=== PATIENT | male | born 1960 | race Caucasian/White ===

== ENCOUNTER 2017-09-09 22:02 | Inpatient (IN) | payer BC ==
[2017-09-09 22:25] LABS: ABSOLUTE BASOPHILS # (AUTO) 0.1 10^3/uL (0.0-0.2); ABSOLUTE LYMPHOCYTES (AUTO) 1.2 10^3/uL (0.5-4.7); ABSOLUTE MONOCYTES (AUTO) 1.5 10^3/uL (0.1-1.4); ABSOLUTE NEUT (AUTO) 7.9 10^3/uL (1.7-8.2); BASOPHILS % (AUTO) 1.1 % (0-2); EOSINOPHILS % (AUTO) 0.3 % (0-6); HEMATOCRIT 39.5 % (37.9-51.0); HEMOGLOBIN 13.8 g/dL (13.5-17.0); HGB HCT DIFFERENCE 1.9; LYMPHOCYTES % (AUTO) 10.8 % (13-45); MEAN CORPUSCULAR HEMOGLOBIN 32.6 pg (27.0-33.4); MEAN CORPUSCULAR VOLUME 93 fl (80-97); RED BLOOD COUNT 4.24 10^6/uL (4.35-5.55); RED CELL DISTRIBUTION WIDTH 13.4 % (11.5-14.0); SEGMENTED NEUTROPHILS % (AUTO) 73.8 % (42-78); WHITE BLOOD COUNT 10.7 10^3/uL (4.0-10.5)
[2017-09-09] MEDS ORDERED: NORMAL SALINE 1000 ML 1,000 ML IV ONE (22:28)
[2017-09-09 22:39] LABS: ALANINE AMINOTRANSFERASE 39 U/L (21-72); ALBUMIN 3.3 g/dL (3.5-5.0); ALKALINE PHOSPHATASE 66 U/L (38-126); ANION GAP 11 (5-19); ASPARTATE AMINO TRANSFERASE 18 U/L (17-59); BILIRUBIN,DIRECT 0.4 mg/dL (0.0-0.4); BILIRUBIN,TOTAL 1.2 mg/dL (0.2-1.3); BLOOD UREA NITROGEN 43 mg/dL (7-20); CALCIUM 9.2 mg/dL (8.4-10.2); CARBON DIOXIDE 26 mmol/L (22-30); CHLORIDE 100 mmol/L (98-107); CREATINE KINASE 156 U/L (55-170); CREATININE RESULT 1.17 mg/dL (0.52-1.25); GLUCOSE 152 mg/dL (75-110); SODIUM 136.8 mmol/L (137-145); TOTAL PROTEIN 5.5 g/dL (6.3-8.2)
--- NOTE | 2017-09-09 22:50 | EKG REPORT ---
SEVERITY:- OTHERWISE NORMAL ECG - SINUS TACHYCARDIA : Confirmed by: Anitha Macdonald 09-Sep-2017 22:49:58
[2017-09-09 22:51] LABS: CREATINE KINASE MB 1.57 ng/mL (<4.55)
[2017-09-09 22:55] LABS: TROPONIN I < 0.012 ng/mL
--- NOTE | 2017-09-09 23:00 | RADIOLOGY REPORT (SQ) ---
EXAM DESCRIPTION: CT HEAD WITHOUT CLINICAL HISTORY: 57 years Male, syncope COMPARISON: None. TECHNIQUE: No contrast, This exam was performed according to our departmental dose-optimization program, which includes automated exposure control, adjustment of the mA and/or kV according to patient size and/or use of iterative reconstruction technique. FINDINGS: Mild white matter microangiopathy. No evidence of mass, mass effect, or midline shift. No hemorrhage or infarct. Atherosclerosis. Extra-axial structures appear unremarkable. IMPRESSION: No acute findings. Mild white matter microangiopathy.
[2017-09-09 23:01] LABS: APPEARANCE,URINE CLEAR; BILIRUBIN,URINE NEGATIVE (NEGATIVE); GLUCOSE, URINE 50 mg/dL (NEGATIVE); KETONES,URINE TRACE mg/dL (NEGATIVE); LEUKOCYTE ESTERASE,URINE NEGATIVE (NEGATIVE); NITRITE,URINE NEGATIVE (NEGATIVE); PROTEIN,URINE NEGATIVE (NEGATIVE); UROBILINOGEN,URINE NEGATIVE mg/dL (<2.0)
--- NOTE | 2017-09-09 23:01 | ER Document Report ---
ED General - General Chief Complaint: Syncope Stated Complaint: SYNCOPE EPISODE Time Seen by Provider: 09/09/17 22:13 TRAVEL OUTSIDE OF THE [place] IN LAST 30 DAYS: No - HPI Patient complains to provider of: Syncope Notes: Patient coming in for evaluation of syncope. Patient states he was at [employer] form eating dinner with his family when he became very hot started to break out in sweat when outside states he remembers walking outside He remembers that his was getting him up off the ground. . Patient denies any head pain chest pain neck pain abdominal pain nausea vomiting fever chills prior to after during the episode. Patient states he is a symptomatically at this time. Patient states history of [place] in the past. Denies history of syncope recent travel patient is alert and oriented no distress upon my evaluation. - Related Data Allergies/Adverse Reactions: codeine [Codeine] Allergy (Mild, Verified 01/30/15 12:21) Anaphylaxis Past Medical History - Social History Smoking Status: Unknown if Ever Smoked Family History: Arthritis, Malignancy, CAD, CVA, Hyperlipidemia, Hypertension Patient has suicidal ideation: No Patient has homicidal ideation: No - Past Medical History Cardiac Medical History: Reports: Hx Heart Attack - STENT, Hx Hypertension Renal/ Medical History: Denies: Hx Peritoneal Dialysis Musculoskeltal Medical History: Reports Hx Arthritis, Reports Hx Gout, Reports Hx Musculoskeletal Trauma - right shoulder Traumatic Medical History: Reports: Hx Fractures - right shoulder Past Surgical History: Reports: Hx Orthopedic Surgery - Immunizations Hx Diphtheria, Pertussis, Tetanus Vaccination: Yes Review of Systems - Review of Systems Constitutional: No symptoms reported EENT: No symptoms reported Cardiovascular: Syncope Respiratory: No symptoms reported Gastrointestinal: No symptoms reported Genitourinary: No symptoms reported Male Genitourinary: No symptoms reported Musculoskeletal: No symptoms reported Skin: No symptoms reported Hematologic/Lymphatic: No symptoms reported Neurological/Psychological: No symptoms reported -: Yes All other systems reviewed and negative Physical Exam - Vital signs Vitals: Temp Resp BP Pulse Ox 98.8 F 20 115/77 95 09/09/17 22:17 12 22:17 09/09/17 22:17 09/09/17 22:17 Interpretation: Normal - General General appearance: Appears well, Alert - HEENT Head: Normocephalic, Atraumatic Eyes: Normal Pupils: PERRL - Respiratory Respiratory status: No respiratory distress Chest status: Nontender Breath sounds: Normal Chest palpation: Normal - Cardiovascular Rhythm: Regular Heart sounds: Normal auscultation Murmur: No - Abdominal Inspection: Normal Distension: No distension Bowel sounds: Normal Tenderness: Nontender Organomegaly: No organomegaly - Back Back: Normal, Nontender - Extremities General upper extremity: Normal inspection, Nontender, Normal color, Normal ROM , Normal temperature General lower extremity: Normal inspection, Nontender, Normal color, Normal ROM , Normal temperature, Normal weight bearing. No: Ni's sign - Neurological Neuro grossly intact: Yes Cognition: Normal Orientation: AAOx4 Joi Coma Scale Eye Opening: Spontaneous [place] Coma Scale Verbal: Oriented [place] Coma Scale Motor: Obeys Commands [place] Coma Scale Total: 15 Speech: Normal Motor strength normal: LUE, RUE, LLE, RLE Sensory: Normal - Psychological Associated symptoms: Normal affect, Normal mood - Skin Skin Temperature: Warm Skin Moisture: Dry Skin Color: Normal Course - Re-evaluation Re-evalutation: 09/10/17 01:27 Orthostatics are positive on the patient. Otherwise workup at this time is negative will repeat a troponin. Patient states still feeling better. Patient will be discharged on follow-up with primary care physician if second troponin is normal. 09/10/17 03:31 Second troponin returned initially was about the discharge patient second set of orthostatics were performed patients to orthostatic on the second set performed by nursing staff patient stating these have a bowel movement which returned bright red blood. Patient was placed back in the stretcher. Reexamined the patient patient still has no complaints no chest pain no abdominal pain. Abdomen still soft nontender. Patient is on gout medication more likely this is etiology of his GI bleed and possible etiology of syncope. Discussed with hospitalist and GI conference manager Dr. Connell agreed both the admit and see the patient. I have repeated a CBC coags we also have started patient on Protonix maintenance IV fluids made him n.p.o. and type and screen the patient. - Vital Signs Vital signs: Temp Pulse Resp BP Pulse Ox 98.8 F 87 22 H 129/76 H 96 09/09/17 22:17 09/10/17 00:50 09/10/17 00:01 09/10/17 00:50 09/10/17 00:01 - Laboratory Result Diagrams: 09/09/17 22:17 09/09/17 22:17 Laboratory results interpreted by me: 09/09/17 09/09/17 09/09/17 22:17 22:17 22:17 WBC 10.7 H RBC 4.24 L Lymphocytes % 10.8 L Monocytes % 14.0 H Absolute Monocytes 1.5 H D-Dimer 0.90 H Sodium 136.8 L BUN 43 H Glucose 152 H Total Protein 5.5 L Albumin 3.3 L Urine Glucose (UA) Urine Ketones Urine Blood 09/09/17 22:34 WBC RBC Lymphocytes % Monocytes % Absolute Monocytes D-Dimer Sodium BUN Glucose Total Protein Albumin Urine Glucose (UA) 50 H Urine Ketones TRACE H Urine Blood SMALL H Discharge - Discharge Clinical Impression: Syncope Qualifiers: Syncope type: unspecified Qualified Code(s): R55 - Syncope and collapse GI bleed Qualifiers: GI bleed type/associated pathology: unspecified gastrointestinal hemorrhage type Qualified Code(s): K92.2 - Gastrointestinal hemorrhage, unspecified Condition: Good Disposition: ADMITTED INPATIENT Admitting Provider: Hospitalist [facility] Unit Admitted: ICU
--- NOTE | 2017-09-10 00:14 | RADIOLOGY REPORT (SQ) ---
EXAM DESCRIPTION: CHEST PA/LAT CLINICAL HISTORY: 57 years, Male, syncope COMPARISON: None. NUMBER OF VIEWS: 1 TECHNIQUE: Frontal. LIMITATIONS: None. FINDINGS: Moderate lung volumes. Clear parenchyma. Normal cardiac silhouette. [id number] right coracoclavicular osteoarthritis/deformity may indicate prior injury. IMPRESSION: No acute findings. 2011 [employer]- All Rights Reserved
--- NOTE | 2017-09-10 00:23 | RADIOLOGY REPORT (SQ) ---
EXAM DESCRIPTION: CTA CHEST CLINICAL HISTORY: 57 years Male, syncope COMPARISON: None. TECHNIQUE: 100 mL [id number], This exam was performed according to our departmental dose-optimization program, which includes automated exposure control, adjustment of the mA and/or kV according to patient size and/or use of iterative reconstruction technique. FINDINGS: No evidence of pulmonary embolus. No right ventricular strain. Small coronary arterial calcification. Faint scattered nonspecific groundglass density may indicate small airways disease and small right basilar atelectasis or scar. Mild hepatic steatosis. Mild/moderate osteoarthritis. Moderate disc desiccation. Inferior neck, axillae, and upper abdomen appear otherwise unremarkable. IMPRESSION: No acute cardiopulmonary findings. No evidence of pulmonary emboli.
[2017-09-10] MEDS ORDERED: NORMAL SALINE 500 ML IV ONE ×2 (01:12→03:23)
[2017-09-10] MEDS ORDERED: PANTOPRAZOLE SODIUM 40 MG VIAL IV ONE (03:11)
[2017-09-10] MEDS ORDERED: NORMAL SALINE 1000 ML 1,000 ML IV ONE (03:23)
[2017-09-10] MEDS ORDERED: IPRATROPIUM/ALBUTEROL 0.5-2.5 MG/3 ML AMPUL NEB PRN (03:29)
[2017-09-10] MEDS ORDERED: NORMAL SALINE 1000 ML 1,000 ML IV SCH (03:30)
[2017-09-10 03:47] LABS: ABSOLUTE BASOPHILS # (AUTO) 0.1 10^3/uL (0.0-0.2); ABSOLUTE LYMPHOCYTES (AUTO) 2.2 10^3/uL (0.5-4.7); ABSOLUTE MONOCYTES (AUTO) 2.1 10^3/uL (0.1-1.4); ABSOLUTE NEUT (AUTO) 7.5 10^3/uL (1.7-8.2); BASOPHILS % (AUTO) 0.8 % (0-2); EOSINOPHILS % (AUTO) 0.2 % (0-6); HEMATOCRIT 34.2 % (37.9-51.0); HEMOGLOBIN 11.8 g/dL (13.5-17.0); HGB HCT DIFFERENCE 1.2; LYMPHOCYTES % (AUTO) 18.4 % (13-45); MEAN CORPUSCULAR HEMOGLOBIN 32.2 pg (27.0-33.4); MEAN CORPUSCULAR HGB CONC 34.4 g/dL (32.0-36.0); MEAN CORPUSCULAR VOLUME 94 fl (80-97); MONOCYTES % (AUTO) 17.4 % (3-13); RED BLOOD COUNT 3.65 10^6/uL (4.35-5.55); RED CELL DISTRIBUTION WIDTH 13.5 % (11.5-14.0); SEGMENTED NEUTROPHILS % (AUTO) 63.2 % (42-78); WHITE BLOOD COUNT 11.9 10^3/uL (4.0-10.5)
[2017-09-10 03:50] LABS: PARTIAL THROMBOPLASTIN TIME 21.7 SEC (23.5-35.8); PROTHROMBIN TIME 14.9 SEC (11.4-15.4)
--- NOTE | 2017-09-10 04:33 | PDOC H&P ---
History of Present Illness Admission Date/PCP: 09/10/17 03:29 Patient complains of: Syncope History of Present Illness: MARLA DALE is a 57 year old male with a past medical history of coronary artery disease with stent placement 2013, osteoarthritis and gout on indomethacin. Patient presents with diaphoresis following a meal followed by a brief syncopal episode in which she was helped to the ground by his . He did not have limb shaking or sustain injury but had urinary incontinence. In the emergency room he was found to have orthostasis, an elevated BUN followed by a large bright red blood bowel movement. He started on IV Protonix and referred to the hospitalist for admission. He denies headache, palpitations, chest pain or previous episode. He denies new medications and otherwise feels well. Past Medical History Cardiac Medical History: Reports: Myocardial Infarction - STENT, Hypertension Musculoskeltal Medical History: Reports: Arthritis, Gout Psychiatric Medical History: Denies: Alcohol Dependency, Bipolar Disorder, Substance Abuse, Tobacco Dependency Past Surgical History Past Surgical History: Reports: Orthopedic Surgery Social History Information Source: Patient Lives with: Spouse/Significant other Smoking Status: Unknown if Ever Smoked Frequency of Alcohol Use: Rare Drugs: None - Advance Directive Resuscitation Status: Full Code Family History Family History: Arthritis, Malignancy, CAD, CVA, Hyperlipidemia, Hypertension Parental Family History Reviewed: Yes Children Family History Reviewed: Yes Sibling(s) Family History Reviewed.: Yes Medication/Allergy Home Medications: Hydrochlorothiazide [Hydrodiuril 25 mg Tablet] 25 mg PO QAM #30 tablet 08/23/13 Indomethacin [Indocin 50 mg Capsule] 50 mg PO TID #30 capsule 08/23/13 Lisinopril 20 mg PO DAILY #30 tablet 08/23/13 Allergies/Adverse Reactions: codeine [Codeine] Allergy (Mild, Verified 01/30/15 12:21) Anaphylaxis Review of Systems Constitutional: ABSENT: chills, fever(s), headache(s), weight gain, weight loss Eyes: ABSENT: visual disturbances Ears: ABSENT: hearing changes Cardiovascular: ABSENT: chest pain, dyspnea on exertion, edema, orthropnea, palpitations Respiratory: ABSENT: cough, hemoptysis Gastrointestinal: ABSENT: abdominal pain, constipation, diarrhea, hematemesis, hematochezia, nausea, vomiting Genitourinary: ABSENT: dysuria, hematuria Musculoskeletal: ABSENT: joint swelling Integumentary: ABSENT: rash, wounds Neurological: ABSENT: abnormal gait, abnormal speech, confusion, dizziness, focal weakness, syncope Psychiatric: ABSENT: anxiety, depression, homidical ideation, suicidal ideation Endocrine: ABSENT: cold intolerance, heat intolerance, polydipsia, polyuria Hematologic/Lymphatic: ABSENT: easy bleeding, easy bruising Physical Exam Vital Signs: Temp Pulse Resp BP Pulse Ox 98.8 F 87 18 114/69 96 09/09/17 22:17 09/10/17 00:50 09/10/17 03:43 09/10/17 03:43 09/10/17 03:43 General appearance: PRESENT: no acute distress, well-developed, well-nourished Head exam: PRESENT: atraumatic, normocephalic Eye exam: PRESENT: conjunctiva pink, EOMI, PERRLA. ABSENT: scleral icterus Ear exam: PRESENT: normal external ear exam Mouth exam: PRESENT: moist, tongue midline Neck exam: ABSENT: carotid bruit, JVD, lymphadenopathy, thyromegaly Respiratory exam: PRESENT: clear to auscultation carlos. ABSENT: rales, rhonchi, wheezes Cardiovascular exam: PRESENT: RRR. ABSENT: diastolic murmur, rubs, systolic murmur Pulses: PRESENT: normal dorsalis pedis pul Vascular exam: PRESENT: normal capillary refill GI/Abdominal exam: PRESENT: normal bowel sounds, soft. ABSENT: distended, guarding, mass, organolmegaly, rebound, tenderness Rectal exam: PRESENT: deferred Extremities exam: PRESENT: full ROM. ABSENT: calf tenderness, clubbing, pedal edema Neurological exam: PRESENT: alert, awake, oriented to person, oriented to place , oriented to time, oriented to situation, CN II-XII grossly intact. ABSENT: motor sensory deficit Psychiatric exam: PRESENT: appropriate affect, normal mood. ABSENT: homicidal ideation, suicidal ideation Skin exam: PRESENT: dry, intact, warm. ABSENT: cyanosis, rash Results Impressions: Chest X-Ray 09/09/17 22:28 IMPRESSION: No acute findings. 2010 [employer]- All Rights Reserved Head CT 09/09/17 22:28 IMPRESSION: No acute findings. Mild white matter microangiopathy. Chest/Abdomen CTA 09/09/17 23:01 IMPRESSION: No acute cardiopulmonary findings. No evidence of pulmonary emboli. Assessment & Plan - Diagnosis (1) Upper GI bleed Is this a current diagnosis for this admission?: Yes Plan: Likely gastric versus duodenal ulcer secondary to indomethacin. ICU admission, n.p.o., Protonix 80 mg bolus followed by 80 mg over 72 hours. Gastroenterology consult for EGD, serial CBC and as needed RBC transfusion. (2) Gout Is this a current diagnosis for this admission?: Yes Plan: Avoidance of p.o. NSAIDs (3) Coronary artery disease Is this a current diagnosis for this admission?: Yes Plan: Maintain hemoglobin around 10 with as needed transfusion. (4) Syncope Qualifiers: Syncope type: unspecified Qualified Code(s): R55 - Syncope and collapse Is this a current diagnosis for this admission?: Yes Plan: Secondary to #1. - Time Time Spent: 30 to 50 Minutes - Inpatient Certification Medical Necessity: Need Close Monitoring Due to Risk of Patient Decompensation
[2017-09-10] MEDS ORDERED: PANTOPRAZOLE SODIUM 40 MG VIAL IV PRN (04:42)
[2017-09-10] MEDS ORDERED: INFLUENZA ADLT QUAD (36MOS+) 2017-18 VAC 0.5 ML SYR IM PRN (05:44)
--- NOTE | 2017-09-10 07:38 | PDOC CONSULTATION ---
Consultation Consult Date: 09/09/17 Attending physician:: BETO BENÍTEZ Consult reason:: GI bleeding History of Present Illness Admission Date/PCP: 09/10/17 03:29 History of Present Illness: I was contacted overnight by ED physician, patient had been seen in the ED for syncope. patient was about to be discharged when upon standing up, felt weak, also reported rectal bleeding he was subsequently admitted and is in the ICU Hgb has dropped about 2 grams after hydration patient had CT scan done , that was negative for PE does take ASA and Plavix as an outpatient denies melena however does have symptoms of hypotension and weakness patient has had an [place] in the past but denies any chest pain GI work up is requested to rule out source of bleed patient to be stabalized first prior to undergoing EGD he will need to be on a PPI drip should be kept NPO also may need to transfuse , follow H/H q 6 hours Past Medical History Cardiac Medical History: Reports: Myocardial Infarction - STENT, Hypertension Musculoskeltal Medical History: Reports: Arthritis, Gout Psychiatric Medical History: Denies: Alcohol Dependency, Bipolar Disorder, Substance Abuse, Tobacco Dependency Past Surgical History Past Surgical History: Reports: Orthopedic Surgery Social History Lives with: Spouse/Significant other Smoking Status: Never Smoker Frequency of Alcohol Use: Social Hx Recreational Drug Use: Yes Drugs: None Hx Prescription Drug Abuse: No - Advance Directive Resuscitation Status: Full Code Family History Family History: Arthritis, Malignancy, CAD, CVA, Hyperlipidemia, Hypertension Parental Family History Reviewed: Yes Children Family History Reviewed: Unknown Sibling(s) Family History Reviewed.: Unknown Medication/Allergy Home Medications: Amlodipine Besylate [Amlodipine Besylate] 5 mg PO DAILY 09/10/17 Aspirin 162 mg PO DAILY 09/10/17 Atorvastatin Calcium [Lipitor 20 mg Tablet] 20 mg PO QHS 09/10/17 Clopidogrel Bisulfate [Clopidogrel] 75 mg PO DAILY 09/10/17 Docusate Sodium [Colace 100 mg Capsule] 100 mg PO DAILY 09/10/17 Metoprolol Tartrate [Metoprolol Tartrate] 12.5 mg PO BID 09/10/17 Valsartan/Hydrochlorothiazide [Valsartan-Hctz 160-25 mg Tab] 1 each PO DAILY 04/20 Allergies/Adverse Reactions: codeine [Codeine] Allergy (Mild, Verified 04/28/15 12:21) Anaphylaxis Review of Systems Constitutional: PRESENT: weakness. ABSENT: fever(s), headache(s), night sweats Ears: ABSENT: hearing changes Nose, Mouth, and Throat: ABSENT: mouth pain, sore throat Cardiovascular: ABSENT: dyspnea on exertion, edema Respiratory: ABSENT: hemoptysis Gastrointestinal: PRESENT: hematochezia. ABSENT: melena, nausea, vomiting Genitourinary: ABSENT: dysuria, hematuria Musculoskeletal: ABSENT: deformity, joint swelling Integumentary: ABSENT: pruritus Neurological: PRESENT: syncope. ABSENT: tingling, tremor(s), vertigo Endocrine: PRESENT: polyuria. ABSENT: polydipsia, polyphagia Hematologic/Lymphatic: ABSENT: easy bruising Physical Exam Vital Signs: Temp Pulse Resp BP Pulse Ox 98.1 F 94 17 120/66 100 09/10/17 06:00 09/10/17 05:21 09/10/17 07:00 09/10/17 06:55 09/10/17 07:00 Intake & Output 09/09/17 09/10/17 09/11/17 06:59 06:59 06:59 Intake Total 490 Output Total 0 Balance 490 Weight 122.3 kg General appearance: PRESENT: no acute distress, well-developed, well-nourished Head exam: PRESENT: atraumatic, normocephalic Eye exam: PRESENT: EOMI, PERRLA. ABSENT: nystagmus, periorbital swelling, scleral icterus Mouth exam: PRESENT: moist, neck supple Throat exam: ABSENT: tonsillar exudate, tonsillogmegaly Neck exam: ABSENT: meningismus, tenderness, thyromegaly Respiratory exam: PRESENT: symmetrical, unlabored. ABSENT: tachypnea, wheezes Cardiovascular exam: PRESENT: RRR, +S1, +S2 GI/Abdominal exam: PRESENT: soft. ABSENT: rebound, rigid, tenderness Extremities exam: ABSENT: joint swelling Neurological exam: PRESENT: oriented to time, oriented to situation, reflexes normal, CN II-XII grossly intact Skin exam: PRESENT: normal color. ABSENT: mottled, petechiae, urticaria, vesicles Results Impressions: Chest X-Ray 09/09/17 22:28 IMPRESSION: No acute findings. 2010 [employer]- All Rights Reserved Head CT 09/09/17 22:28 IMPRESSION: No acute findings. Mild white matter microangiopathy. Chest/Abdomen CTA 09/09/17 23:01 IMPRESSION: No acute cardiopulmonary findings. No evidence of pulmonary emboli. Assessment & Plan - Diagnosis (1) GI bleed Qualifiers: GI bleed type/associated pathology: unspecified gastrointestinal hemorrhage type Qualified Code(s): K92.2 - Gastrointestinal hemorrhage, unspecified Plan: ? possible upper GI bleed since has had symptoms of hypotension, syncope and weakness agreed with admission to ICU H/H q 6 hours 2 large bore IV's fluid resuscitation transfuse as necessary since patient has had FL in the past PPI drip for now will need EGD done Risks, benefits and alternatives are discussed with the patient in detail further recommendations to follow - Time Time Spent: 50 to 70 Minutes
[2017-09-10 11:03] LABS: ABSOLUTE LYMPHOCYTES (AUTO) 1.2 10^3/uL (0.5-4.7); ABSOLUTE MONOCYTES (AUTO) 1.1 10^3/uL (0.1-1.4); ABSOLUTE NEUT (AUTO) 5.3 10^3/uL (1.7-8.2); BASOPHILS % (AUTO) 0.6 % (0-2); EOSINOPHILS % (AUTO) 0.2 % (0-6); HEMATOCRIT 29.2 % (37.9-51.0); HEMOGLOBIN 9.9 g/dL (13.5-17.0); HGB HCT DIFFERENCE 0.5; LYMPHOCYTES % (AUTO) 15.8 % (13-45); MEAN CORPUSCULAR HEMOGLOBIN 32.1 pg (27.0-33.4); MEAN CORPUSCULAR VOLUME 95 fl (80-97); MONOCYTES % (AUTO) 14.1 % (3-13); RED BLOOD COUNT 3.09 10^6/uL (4.35-5.55); RED CELL DISTRIBUTION WIDTH 13.1 % (11.5-14.0); SEGMENTED NEUTROPHILS % (AUTO) 69.3 % (42-78); WHITE BLOOD COUNT 7.7 10^3/uL (4.0-10.5)
[2017-09-10] MEDS: NORMAL SALINE 1000 ML 1,000 ML IV PRN ×2 (13:04→17:48)
[2017-09-10] MEDS: NORMAL SALINE 100 ML with PANTOPRAZOLE SODIUM 80 MG IV PRN ×2 (13:04)
[2017-09-10] MEDS ORDERED: DIPHENHYDRAMINE HCL 50 MG/ML VIAL ONE (13:21)
[2017-09-10] MEDS ORDERED: ONDANSETRON HCL INJ/PF 4 MG/2 ML SDV ONE (13:21)
[2017-09-10] MEDS ORDERED: MIDAZOLAM 2 MG/2 ML INJ ONE (13:22)
[2017-09-10] MEDS ORDERED: NALOXONE HCL INJ/PF 0.4 MG/1 ML SDV ONE (13:22)
[2017-09-10] MEDS ORDERED: FLUMAZENIL INJ 0.5 MG/5 ML VIAL ONE (13:23)
[2017-09-10] MEDS ORDERED: EPINEPHRINE INJ 1 MG/10 ML DISP.SYRIN ONE (13:23)
[2017-09-10] MEDS ORDERED: GLUCAGON,HUMAN RECOMB 1 MG INJ ONE (13:23)
[2017-09-10] MEDS ORDERED: FENTANYL CITRATE INJ/PF 100 MCG/2 ML AMPUL ONE ×2 (13:23)
[2017-09-10] MEDS: MIDAZOLAM 2 MG/2 ML INJ ONE ×2 (13:47→13:51)
--- NOTE | 2017-09-10 14:42 | Operative Report ---
Operative Report DATE OF SURGERY: 09/10/17 Operative Report: The risks benefits and alternatives of the procedure explained to the patient in detail and informed consent is obtained.A GIF Olympus video scope was inserted into the patient's mouth and hypopharynx, the esophagus is identified intubated and insufflated, the scope was then advanced through the esophagus stomach and duodenum, retroflexion maneuver is done, the esophagus stomach and first and second portions of the duodenum examined PREOPERATIVE DIAGNOSIS: GI bleed POSTOPERATIVE DIAGNOSIS: Esophagitis. Clean base gastric ulcer. Duodenitis. Biopsies obtained to rule out for Helicobacter pylori OPERATION: EGD with biopsy SURGEON: BETO BENÍTEZ ANESTHESIA: Moderate Sedation - 4 mg of Versed, 100 mcg of fentanyl. Conscious sedation monitoring time 30 minutes. TISSUE REMOVED OR ALTERED: As noted above. COMPLICATIONS: None. ESTIMATED BLOOD LOSS: None. INTRAOPERATIVE FINDINGS: As described above. PROCEDURE: Patient tolerated the procedure well. We will continue to monitor H&H. No postprocedure complications are noted. We will have to hold aspirin and Plavix until his blood count stabilizes. Transfuse as needed. Continue IV PPI We will continue to monitor patient
[2017-09-10 15:53] LABS: ABSOLUTE LYMPHOCYTES (AUTO) 1.3 10^3/uL (0.5-4.7); ABSOLUTE MONOCYTES (AUTO) 1.1 10^3/uL (0.1-1.4); ABSOLUTE NEUT (AUTO) 6.8 10^3/uL (1.7-8.2); BASOPHILS % (AUTO) 0.5 % (0-2); EOSINOPHILS % (AUTO) 0.3 % (0-6); HEMATOCRIT 27.4 % (37.9-51.0); HEMOGLOBIN 9.5 g/dL (13.5-17.0); HGB HCT DIFFERENCE 1.1; LYMPHOCYTES % (AUTO) 14.2 % (13-45); MEAN CORPUSCULAR HEMOGLOBIN 32.8 pg (27.0-33.4); MEAN CORPUSCULAR HGB CONC 34.8 g/dL (32.0-36.0); MEAN CORPUSCULAR VOLUME 94 fl (80-97); MONOCYTES % (AUTO) 12.1 % (3-13); RED CELL DISTRIBUTION WIDTH 13.3 % (11.5-14.0); SEGMENTED NEUTROPHILS % (AUTO) 72.9 % (42-78); WHITE BLOOD COUNT 9.4 10^3/uL (4.0-10.5)
[2017-09-10 21:50] LABS: ABSOLUTE BASOPHILS # (AUTO) 0.1 10^3/uL (0.0-0.2); ABSOLUTE LYMPHOCYTES (AUTO) 1.2 10^3/uL (0.5-4.7); ABSOLUTE MONOCYTES (AUTO) 1.1 10^3/uL (0.1-1.4); ABSOLUTE NEUT (AUTO) 6.3 10^3/uL (1.7-8.2); EOSINOPHILS % (AUTO) 0.4 % (0-6); HEMATOCRIT 25.3 % (37.9-51.0); HGB HCT DIFFERENCE 1.7; LYMPHOCYTES % (AUTO) 14.1 % (13-45); MEAN CORPUSCULAR HEMOGLOBIN 32.9 pg (27.0-33.4); MEAN CORPUSCULAR HGB CONC 35.4 g/dL (32.0-36.0); MEAN CORPUSCULAR VOLUME 93 fl (80-97); MONOCYTES % (AUTO) 12.2 % (3-13); RED BLOOD COUNT 2.72 10^6/uL (4.35-5.55); RED CELL DISTRIBUTION WIDTH 13.2 % (11.5-14.0); SEGMENTED NEUTROPHILS % (AUTO) 72.3 % (42-78); WHITE BLOOD COUNT 8.7 10^3/uL (4.0-10.5)
[2017-09-11 04:57] LABS: ABSOLUTE BASOPHILS # (AUTO) 0.1 10^3/uL (0.0-0.2); ABSOLUTE LYMPHOCYTES (AUTO) 1.2 10^3/uL (0.5-4.7); ABSOLUTE MONOCYTES (AUTO) 0.9 10^3/uL (0.1-1.4); ABSOLUTE NEUT (AUTO) 5.7 10^3/uL (1.7-8.2); BASOPHILS % (AUTO) 0.7 % (0-2); EOSINOPHILS % (AUTO) 0.6 % (0-6); HEMATOCRIT 25.6 % (37.9-51.0); HEMOGLOBIN 8.7 g/dL (13.5-17.0); HGB HCT DIFFERENCE 0.5; LYMPHOCYTES % (AUTO) 14.8 % (13-45); MEAN CORPUSCULAR HEMOGLOBIN 31.9 pg (27.0-33.4); MEAN CORPUSCULAR HGB CONC 34.1 g/dL (32.0-36.0); MEAN CORPUSCULAR VOLUME 94 fl (80-97); MONOCYTES % (AUTO) 11.4 % (3-13); RED BLOOD COUNT 2.73 10^6/uL (4.35-5.55); RED CELL DISTRIBUTION WIDTH 13.3 % (11.5-14.0); SEGMENTED NEUTROPHILS % (AUTO) 72.5 % (42-78); WHITE BLOOD COUNT 7.9 10^3/uL (4.0-10.5)
[2017-09-11 05:02] LABS: ANION GAP 6 (5-19); BLOOD UREA NITROGEN 23 mg/dL (7-20); CALCIUM 7.8 mg/dL (8.4-10.2); CARBON DIOXIDE 26 mmol/L (22-30); CHLORIDE 108 mmol/L (98-107); CREATININE RESULT 0.82 mg/dL (0.52-1.25); GLUCOSE 109 mg/dL (75-110); POTASSIUM 3.7 mmol/L (3.6-5.0); SODIUM 139.9 mmol/L (137-145)
[2017-09-11] MEDS ORDERED: KETOROLAC TROMETHAMINE INJ/PF 30 MG/1 ML SDV IV ONE (05:45)
[2017-09-11] MEDS ORDERED: ACETAMINOPHEN 325 MG TABLET PO PRN (06:34)
[2017-09-11] MEDS ORDERED: ZOLPIDEM TARTRATE 5 MG TABLET PO PRN (06:34)
[2017-09-11] MEDS ORDERED: ONDANSETRON HCL INJ/PF 4 MG/2 ML SDV IV PRN (06:35)
[2017-09-11] MEDS: FERROUS SULFATE 325 MG TABLET PO SCH ×2 (09:18→17:14)
[2017-09-11] MEDS ORDERED: MORPHINE SULFATE IR 30 MG TABLET PO PRN (10:42)
--- NOTE | 2017-09-11 11:04 | PDOC PROGRESS REPORT ---
Subjective Progress Note for:: 09/11/17 Subjective:: Patient relates that had not been having any more bleeding. Was not able to sleep last night because of a gout attack. Pain improved after was given IV Toradol Reason For Visit: UPPER GI BLEED Physical Exam Vital Signs: Temp Pulse Resp BP Pulse Ox 100.1 F 98 16 128/77 H 100 09/10/17 17:54 09/10/17 17:54 09/10/17 17:54 09/10/17 17:54 09/10/17 17:54 Intake & Output 09/09/17 09/10/17 09/11/17 06:59 06:59 06:59 Intake Total 490 750 Output Total 0 500 Balance 490 250 Weight 122.3 kg General appearance: PRESENT: no acute distress, cooperative, obese Head exam: PRESENT: atraumatic, normocephalic Eye exam: PRESENT: EOMI, PERRLA Ear exam: PRESENT: normal external ear exam Mouth exam: PRESENT: moist, neck supple Neck exam: PRESENT: full ROM. ABSENT: JVD, tenderness Respiratory exam: PRESENT: clear to auscultation carlos Cardiovascular exam: PRESENT: RRR. ABSENT: diastolic murmur, systolic murmur Vascular exam: PRESENT: normal capillary refill GI/Abdominal exam: PRESENT: normal bowel sounds, soft. ABSENT: tenderness Extremities exam: PRESENT: full ROM, pedal edema Neurological exam: PRESENT: alert, oriented to person, oriented to place, oriented to time Psychiatric exam: PRESENT: appropriate affect, normal mood Skin exam: PRESENT: normal color Results Laboratory Results: 09/11/17 04:28 09/11/17 04:28 09/10/17 09/10/17 09/10/17 10:41 15:35 21:30 WBC 7.7 9.4 8.7 RBC 3.09 L 2.90 L 2.72 L Hgb 9.9 L 9.5 L 9.0 L Hct 29.2 L 27.4 L 25.3 L MCV 95 94 93 MCH 32.1 32.8 32.9 MCHC 34.0 34.8 35.4 RDW 13.1 13.3 13.2 Plt Count 190 184 169 Seg Neutrophils % 69.3 72.9 72.3 Lymphocytes % 15.8 14.2 14.1 Monocytes % 14.1 H 12.1 12.2 Eosinophils % 0.2 0.3 0.4 Basophils % 0.6 0.5 1.0 Absolute Neutrophils 5.3 6.8 6.3 Absolute Lymphocytes 1.2 1.3 1.2 Absolute Monocytes 1.1 1.1 1.1 Absolute Eosinophils 0.0 0.0 0.0 Absolute Basophils 0.0 0.0 0.1 Sodium Potassium Chloride Carbon Dioxide Anion Gap BUN Creatinine Est GFR ( Amer) Est GFR (Non-Af Amer) Glucose Calcium 09/11/17 09/11/17 04:28 04:28 WBC 7.9 RBC 2.73 L Hgb 8.7 L Hct 25.6 L MCV 94 MCH 31.9 MCHC 34.1 RDW 13.3 Plt Count 183 Seg Neutrophils % 72.5 Lymphocytes % 14.8 Monocytes % 11.4 Eosinophils % 0.6 Basophils % 0.7 Absolute Neutrophils 5.7 Absolute Lymphocytes 1.2 Absolute Monocytes 0.9 Absolute Eosinophils 0.0 Absolute Basophils 0.1 Sodium 139.9 Potassium 3.7 Chloride 108 H Carbon Dioxide 26 Anion Gap 6 BUN 23 H Creatinine 0.82 Est GFR ( Amer) > 60 Est GFR (Non-Af Amer) > 60 Glucose 109 Calcium 7.8 L Impressions: Chest X-Ray 09/09/17 22:28 IMPRESSION: No acute findings. 2010 [employer]- All Rights Reserved Head CT 09/09/17 22:28 IMPRESSION: No acute findings. Mild white matter microangiopathy. Chest/Abdomen CTA 09/09/17 23:01 IMPRESSION: No acute cardiopulmonary findings. No evidence of pulmonary emboli. Assessment & Plan - Diagnosis (1) Anemia Qualifiers: Other causes of anemia: acute posthemorrhagic Is this a current diagnosis for this admission?: Yes Plan: We will keep trending. Patient made aware that may need blood transfusion. For now patient has been initiated on iron supplementation orally (2) Upper GI bleed Is this a current diagnosis for this admission?: Yes Plan: Multifactorial. Patient is on aspirin and Plavix. Medications are on hold for now. Management assisted by Dr. Stallworth and appreciated. Patient to be advanced to full liquid as per GIs recommendation (3) Coronary artery disease Qualifiers: Coronary Disease-Associated Artery/Lesion type: unspecified vessel or lesion type [place] vs. transplanted heart: unspecified whether [place] or transplanted heart Associated angina: without angina Qualified Code(s): I25.10 - Atherosclerotic heart disease of [place] coronary artery without angina pectoris Is this a current diagnosis for this admission?: Yes Plan: Patient will require to be of Plavix and aspirin likely for the next 6 weeks (4) Gout Qualifiers: Gout site: foot Gout etiology: unspecified cause Chronicity: acute Laterality: right Qualified Code(s): M10.9 - Gout, unspecified Is this a current diagnosis for this admission?: Yes Plan: Pain management avoiding nonsteroidals in the setting of peptic ulcer disease (5) Syncope Qualifiers: Syncope type: unspecified Qualified Code(s): R55 - Syncope and collapse Is this a current diagnosis for this admission?: Yes Plan: Due to orthostasis secondary to acute GI bleeding - Time Time Spent with patient: 15-24 minutes Medications reviewed and adjusted accordingly: Yes Anticipated discharge: Home Within: within 48 hours - Inpatient Certification Based on my medical assessment, after consideration of the patient's comorbidities, presenting symptoms, or acuity I expect that the services needed warrant INPATIENT care.: Yes I certify that my determination is in accordance with my understanding of Medicare's requirements for reasonable and necessary INPATIENT services [42 CFR 412.3e].: Yes Medical Necessity: Need Close Monitoring Due to Risk of Patient Decompensation, Need for Pain Control
[2017-09-11] MEDS: NORMAL SALINE 100 ML with PANTOPRAZOLE SODIUM 80 MG IV PRN ×2 (13:18)
[2017-09-11] MEDS: OXYCODONE-ACETAMINOPHEN 5-325 MG TABLET PO PRN ×2 (14:22→18:30)
[2017-09-11] MEDS: NORMAL SALINE 1000 ML 1,000 ML IV PRN (14:23)
--- NOTE | 2017-09-11 16:26 | PDOC PROGRESS REPORT ---
Subjective Progress Note for:: 09/11/17 Subjective:: patient underwent EGD yesterday in MICU for possible GI bleeding patient does have clean based gastric ulcer Hgb has been trending down agree that he should be off anticoagulation for at least 6 weeks patient had 1 episode of bleeding continue to monitor H/H lower threshold for transfusion since has cardiac history if continues to have bleeding, may need bleeding scan could also has a possible lower GI source i.e. diverticulosis may need colonoscopy at some point, either next week of as an outpatient has been having gout, now medicated for that avoid NSAIDS if possible Reason For Visit: UPPER GI BLEED Physical Exam Vital Signs: Temp Pulse Resp BP Pulse Ox 99.1 F 85 14 113/64 98 09/11/17 11:18 09/11/17 15:31 09/11/17 15:31 09/11/17 11:18 09/11/17 15:31 Intake & Output 09/10/17 09/11/17 09/12/17 06:59 06:59 06:59 Intake Total 490 1000 Output Total 0 500 Balance 490 500 Weight 122.3 kg 129.5 kg General appearance: PRESENT: no acute distress, well-developed, well-nourished Head exam: PRESENT: atraumatic, normocephalic Eye exam: PRESENT: EOMI, PERRLA. ABSENT: nystagmus, periorbital swelling, scleral icterus Mouth exam: PRESENT: moist, neck supple Throat exam: ABSENT: tonsillar exudate, tonsillogmegaly Neck exam: ABSENT: meningismus, tenderness, thyromegaly Respiratory exam: PRESENT: symmetrical, unlabored. ABSENT: tachypnea, wheezes Cardiovascular exam: PRESENT: RRR, +S2 Pulses: PRESENT: normal dorsalis pedis pul GI/Abdominal exam: PRESENT: soft. ABSENT: rebound, rigid, tenderness Musculoskeletal exam: PRESENT: full ROM Neurological exam: PRESENT: oriented to time, oriented to situation, CN II-XII grossly intact Focused psych exam: ABSENT: restlessness Skin exam: PRESENT: normal color. ABSENT: mottled, pallor, petechiae, urticaria , vesicles Results Laboratory Results: 09/11/17 04:28 09/11/17 04:28 09/10/17 09/11/17 09/11/17 21:30 04:28 04:28 WBC 8.7 7.9 RBC 2.72 L 2.73 L Hgb 9.0 L 8.7 L Hct 25.3 L 25.6 L MCV 93 94 MCH 32.9 31.9 MCHC 35.4 34.1 RDW 13.2 13.3 Plt Count 169 183 Seg Neutrophils % 72.3 72.5 Lymphocytes % 14.1 14.8 Monocytes % 12.2 11.4 Eosinophils % 0.4 0.6 Basophils % 1.0 0.7 Absolute Neutrophils 6.3 5.7 Absolute Lymphocytes 1.2 1.2 Absolute Monocytes 1.1 0.9 Absolute Eosinophils 0.0 0.0 Absolute Basophils 0.1 0.1 Sodium 139.9 Potassium 3.7 Chloride 108 H Carbon Dioxide 26 Anion Gap 6 BUN 23 H Creatinine 0.82 Est GFR ( Amer) > 60 Est GFR (Non-Af Amer) > 60 Glucose 109 Calcium 7.8 L Impressions: Chest X-Ray 09/09/17 22:28 IMPRESSION: No acute findings. [facility] [employer]- All Rights Reserved Head CT 09/09/17 22:28 IMPRESSION: No acute findings. Mild white matter microangiopathy. Chest/Abdomen CTA 09/09/17 23:01 IMPRESSION: No acute cardiopulmonary findings. No evidence of pulmonary emboli. Assessment & Plan - Diagnosis (1) GI bleed Qualifiers: GI bleed type/associated pathology: unspecified gastrointestinal hemorrhage type Qualified Code(s): K92.2 - Gastrointestinal hemorrhage, unspecified Plan: has a clean based gastric ulcer no active bleeding was noted continue to monitor H/H and transfuse as necessary patient may need bleeding scan if continues to have problems to make sure not a concurrent lower GI bleed as well if H/H is stable, can advance diet otherwise as noted, plan is for possible lower GI exam if still an inpatient by Thursday may need transfer to tertiary institution if continued large volume bleeding
[2017-09-12] MEDS: NORMAL SALINE 1000 ML 1,000 ML IV PRN ×2 (00:13→08:22)
[2017-09-12] MEDS: NORMAL SALINE 100 ML with PANTOPRAZOLE SODIUM 80 MG IV PRN ×4 (00:20→12:16)
[2017-09-12] MEDS: OXYCODONE-ACETAMINOPHEN 5-325 MG TABLET PO PRN ×2 (00:22→17:30)
[2017-09-12 05:01] LABS: ABSOLUTE EOSINOPHILS # (AUTO) 0.1 10^3/uL (0.0-0.6); ABSOLUTE LYMPHOCYTES (AUTO) 1.2 10^3/uL (0.5-4.7); ABSOLUTE MONOCYTES (AUTO) 0.7 10^3/uL (0.1-1.4); BASOPHILS % (AUTO) 0.7 % (0-2); EOSINOPHILS % (AUTO) 1.9 % (0-6); HEMATOCRIT 22.1 % (37.9-51.0); LYMPHOCYTES % (AUTO) 19.4 % (13-45); MEAN CORPUSCULAR HEMOGLOBIN 32.8 pg (27.0-33.4); MEAN CORPUSCULAR HGB CONC 34.9 g/dL (32.0-36.0); MEAN CORPUSCULAR VOLUME 94 fl (80-97); MONOCYTES % (AUTO) 12.1 % (3-13); RED BLOOD COUNT 2.35 10^6/uL (4.35-5.55); RED CELL DISTRIBUTION WIDTH 12.9 % (11.5-14.0); SEGMENTED NEUTROPHILS % (AUTO) 65.9 % (42-78); WHITE BLOOD COUNT 6.1 10^3/uL (4.0-10.5)
[2017-09-12 05:08] LABS: HEMOGLOBIN 7.7 g/dL (13.5-17.0)
[2017-09-12 05:24] LABS: ANION GAP 9 (5-19); BLOOD UREA NITROGEN 10 mg/dL (7-20); CALCIUM 7.9 mg/dL (8.4-10.2); CARBON DIOXIDE 25 mmol/L (22-30); CHLORIDE 107 mmol/L (98-107); CREATININE RESULT 0.82 mg/dL (0.52-1.25); GLUCOSE 99 mg/dL (75-110); MAGNESIUM 1.9 mg/dL (1.6-2.3); SODIUM 140.6 mmol/L (137-145)
[2017-09-12] MEDS: FERROUS SULFATE 325 MG TABLET PO SCH ×2 (10:13→17:30)
[2017-09-12] MEDS ORDERED: FUROSEMIDE INJ/PF 20 MG/2 ML SDV IV PRN (11:16)
[2017-09-12] MEDS ORDERED: NORMAL SALINE 250 ML IV PRN ×2 (11:16)
[2017-09-12] MEDS ORDERED: POLYETHYLENE GLYCOL 3350 POWDER 17 GM/1 PACKET PO ONE (13:00)
[2017-09-12] MEDS ORDERED: POTASSIUM CHLORIDE 10 MEQ TABLET.SA PO ONE (13:00)
[2017-09-12] MEDS ORDERED: METHYLPREDNISOLONE INJ 40 MG/1 ML SDV IV ONE (13:00)
--- NOTE | 2017-09-12 13:28 | PDOC PROGRESS REPORT ---
Subjective Progress Note for:: 09/12/17 Subjective:: Complains of still having significant pain to his left foot due to the gout. Had not been able to pass stool since he had been hospitalized. ROS All systems have been reviewed and negative except as seen subjective All laboratories and significant diagnostics have been reviewed Reason For Visit: UPPER GI BLEED Physical Exam Vital Signs: Temp Pulse Resp BP Pulse Ox 98.8 F 78 20 114/68 96 09/12/17 04:34 09/12/17 04:34 09/12/17 00:18 09/12/17 04:34 09/12/17 04:34 Intake & Output 09/10/17 09/11/17 09/12/17 06:59 06:59 06:59 Intake Total 490 1000 2460 Output Total 0 500 2100 Balance 490 500 360 Weight 122.3 kg 129.5 kg General appearance: PRESENT: no acute distress, cooperative, obese Head exam: PRESENT: atraumatic, normocephalic Eye exam: PRESENT: EOMI, PERRLA Ear exam: PRESENT: normal external ear exam, TM's normal bilaterally Neck exam: PRESENT: full ROM. ABSENT: JVD, tenderness Respiratory exam: PRESENT: clear to auscultation carols Cardiovascular exam: PRESENT: RRR. ABSENT: diastolic murmur, systolic murmur Vascular exam: PRESENT: normal capillary refill GI/Abdominal exam: PRESENT: normal bowel sounds, soft. ABSENT: ascites, tenderness Extremities exam: PRESENT: +1 edema - To right lower extremity, other - Swelling of left foot noted. ABSENT: joint swelling Musculoskeletal exam: PRESENT: deformity - Swelling of left foot Neurological exam: PRESENT: alert, oriented to person, oriented to place, oriented to time Psychiatric exam: PRESENT: appropriate affect, normal mood Skin exam: PRESENT: normal color Results Laboratory Results: 09/11/17 04:28 Sodium 139.9 Potassium 3.7 Chloride 108 H Carbon Dioxide 26 Anion Gap 6 BUN 23 H Creatinine 0.82 Est GFR ( Amer) > 60 Est GFR (Non-Af Amer) > 60 Glucose 109 Calcium 7.8 L Impressions: Chest X-Ray 09/09/17 22:28 IMPRESSION: No acute findings. 2010 [employer]- All Rights Reserved Head CT 09/09/17 22:28 IMPRESSION: No acute findings. Mild white matter microangiopathy. Chest/Abdomen CTA 09/09/17 23:01 IMPRESSION: No acute cardiopulmonary findings. No evidence of pulmonary emboli. Assessment & Plan - Diagnosis (1) Anemia Qualifiers: Other causes of anemia: acute posthemorrhagic Is this a current diagnosis for this admission?: Yes Plan: We will transfuse 1 unit of packed red blood cells since patient is cardiac. Continue iron supplementation and trending (2) Upper GI bleed Is this a current diagnosis for this admission?: Yes Plan: Multifactorial. Patient is on aspirin and Plavix. Medications are on hold for now. Will discontinue drip and will place on Protonix 40 mg IV every 12 hours since hemoglobin still trending down. Concern patient will need a colonoscopy (3) Coronary artery disease Qualifiers: Coronary Disease-Associated Artery/Lesion type: unspecified vessel or lesion type [place] vs. transplanted heart: unspecified whether [place] or transplanted heart Associated angina: without angina Qualified Code(s): I25.10 - Atherosclerotic heart disease of [place] coronary artery without angina pectoris Is this a current diagnosis for this admission?: Yes Plan: Patient will require to be of Plavix and aspirin likely for the next 6 weeks. 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 Will transfuse 1 unit of packed red blood cell (4) Gout Qualifiers: Gout site: foot Gout etiology: unspecified cause Chronicity: acute Laterality: left Qualified Code(s): M10.9 - Gout, unspecified Is this a current diagnosis for this admission?: Yes Plan: Pain management avoiding nonsteroidals in the setting of peptic ulcer disease. Will place patient on Solu-Medrol IV which hopefully made interfere with healing status. Patient still with significant amount of pain and swelling limiting his ambulation (5) Syncope Qualifiers: Syncope type: unspecified Qualified Code(s): R55 - Syncope and collapse Is this a current diagnosis for this admission?: Yes Plan: Due to orthostasis secondary to acute GI bleeding (6) Snoring Is this a current diagnosis for this admission?: Yes Plan: Order echocardiogram to evaluate for pulmonary hypertension since there is mild bilateral leg swelling - Time Time Spent with patient: 15-24 minutes Medications reviewed and adjusted accordingly: Yes Anticipated discharge: Home Within: within 48 hours - Inpatient Certification Based on my medical assessment, after consideration of the patient's comorbidities, presenting symptoms, or acuity I expect that the services needed warrant INPATIENT care.: Yes I certify that my determination is in accordance with my understanding of Medicare's requirements for reasonable and necessary INPATIENT services [42 CFR 412.3e].: Yes Medical Necessity: Need Close Monitoring Due to Risk of Patient Decompensation - Bllod transfusion, Other
[2017-09-12 18:15] LABS: HEMATOCRIT 27.7 % (37.9-51.0); HEMOGLOBIN 9.7 g/dL (13.5-17.0); HGB HCT DIFFERENCE 1.4; MEAN CORPUSCULAR HEMOGLOBIN 32.8 pg (27.0-33.4); MEAN CORPUSCULAR VOLUME 94 fl (80-97); RED BLOOD COUNT 2.95 10^6/uL (4.35-5.55); RED CELL DISTRIBUTION WIDTH 13.5 % (11.5-14.0); WHITE BLOOD COUNT 8.3 10^3/uL (4.0-10.5)
[2017-09-12 18:31] LABS: BAND NEUTROPHILS % (MANUAL) 5 % (3-5); BASOPHILS % (MANUAL) 1 % (0-2); EOSINOPHILS % (MANUAL) 0 % (0-6); LYMPHOCYTES % (MANUAL) 4 % (13-45); TOTAL CELLS COUNTED 100
[2017-09-12 18:32] LABS: POLYCHROMASIA SLIGHT
[2017-09-12] MEDS: METHYLPREDNISOLONE INJ 40 MG/1 ML SDV IV SCH (22:22)
[2017-09-12] MEDS: PANTOPRAZOLE SODIUM 40 MG VIAL IV SCH (22:23)
[2017-09-13 04:46] LABS: ABSOLUTE LYMPHOCYTES (AUTO) 0.5 10^3/uL (0.5-4.7); ABSOLUTE MONOCYTES (AUTO) 0.4 10^3/uL (0.1-1.4); ABSOLUTE NEUT (AUTO) 8.8 10^3/uL (1.7-8.2); BASOPHILS % (AUTO) 0.1 % (0-2); HEMATOCRIT 26.4 % (37.9-51.0); HEMOGLOBIN 9.2 g/dL (13.5-17.0); HGB HCT DIFFERENCE 1.2; LYMPHOCYTES % (AUTO) 5.4 % (13-45); MEAN CORPUSCULAR HEMOGLOBIN 32.6 pg (27.0-33.4); MEAN CORPUSCULAR VOLUME 93 fl (80-97); MONOCYTES % (AUTO) 4.1 % (3-13); RED BLOOD COUNT 2.84 10^6/uL (4.35-5.55); RED CELL DISTRIBUTION WIDTH 13.3 % (11.5-14.0); SEGMENTED NEUTROPHILS % (AUTO) 90.4 % (42-78); WHITE BLOOD COUNT 9.7 10^3/uL (4.0-10.5)
[2017-09-13 05:23] LABS: ALANINE AMINOTRANSFERASE 42 U/L (21-72); ALBUMIN 3.1 g/dL (3.5-5.0); ALKALINE PHOSPHATASE 61 U/L (38-126); ANION GAP 11 (5-19); ASPARTATE AMINO TRANSFERASE 19 U/L (17-59); BILIRUBIN,DIRECT 0.4 mg/dL (0.0-0.4); BILIRUBIN,TOTAL 0.4 mg/dL (0.2-1.3); BLOOD UREA NITROGEN 14 mg/dL (7-20); CALCIUM 8.9 mg/dL (8.4-10.2); CARBON DIOXIDE 25 mmol/L (22-30); CHLORIDE 104 mmol/L (98-107); CREATININE RESULT 0.82 mg/dL (0.52-1.25); GLUCOSE 146 mg/dL (75-110); MAGNESIUM 2.2 mg/dL (1.6-2.3); POTASSIUM 4.6 mmol/L (3.6-5.0); SODIUM 139.9 mmol/L (137-145); TOTAL PROTEIN 5.4 g/dL (6.3-8.2)
[2017-09-13] MEDS: FERROUS SULFATE 325 MG TABLET PO SCH ×2 (10:29→17:23)
[2017-09-13] MEDS: POLYETHYLENE GLYCOL 3350 POWDER 17 GM/1 PACKET PO SCH (10:29)
[2017-09-13] MEDS: METHYLPREDNISOLONE INJ 40 MG/1 ML SDV IV SCH ×2 (10:29→21:19)
[2017-09-13] MEDS: PANTOPRAZOLE SODIUM 40 MG VIAL IV SCH (10:30)
--- NOTE | 2017-09-13 14:18 | PDOC PROGRESS REPORT ---
Subjective Progress Note for:: 09/13/17 Subjective:: Relates that pain and swelling of the left foot is better. Was able to move his bowels but he was a large dark stool. He denies any weakness or chest pain. Has been able to tolerate diet. ROS All systems have been reviewed and negative except as seen subjective All laboratories and significant diagnostics have been reviewed Reason For Visit: UPPER GI BLEED Physical Exam Vital Signs: Temp Pulse Resp BP Pulse Ox 98.3 F 79 20 131/77 H 97 09/13/17 03:39 09/13/17 03:39 09/13/17 03:39 09/13/17 03:39 09/13/17 03:39 Intake & Output 09/12/17 09/13/17 09/14/17 06:59 06:59 06:59 Intake Total 6138 4380 Output Total 2950 5800 Balance 3188 -1420 Weight 121.3 kg General appearance: PRESENT: no acute distress, cooperative, obese Head exam: PRESENT: atraumatic, normocephalic Eye exam: PRESENT: EOMI, PERRLA Ear exam: PRESENT: normal external ear exam, TM's normal bilaterally Mouth exam: PRESENT: moist Neck exam: PRESENT: full ROM. ABSENT: JVD, tenderness Respiratory exam: PRESENT: clear to auscultation carlos Cardiovascular exam: PRESENT: RRR. ABSENT: diastolic murmur, systolic murmur Vascular exam: PRESENT: normal capillary refill GI/Abdominal exam: PRESENT: ascites, normal bowel sounds, soft. ABSENT: guarding, tenderness Extremities exam: PRESENT: full ROM, tenderness, +1 edema - Swelling of left foot when compared to previous assessment Neurological exam: PRESENT: alert, oriented to person, oriented to place, oriented to time Psychiatric exam: PRESENT: appropriate affect, normal mood Skin exam: PRESENT: normal color Results Laboratory Results: 09/13/17 04:19 09/13/17 04:19 09/12/17 09/13/17 09/13/17 17:40 04:19 04:19 WBC 8.3 9.7 RBC 2.95 L 2.84 L Hgb 9.7 L 9.2 L Hct 27.7 L 26.4 L MCV 94 93 MCH 32.8 32.6 MCHC 35.0 35.0 RDW 13.5 13.3 Plt Count 217 230 Seg Neutrophils % Not Reportable 90.4 H Lymphocytes % Not Reportable 5.4 L Monocytes % Not Reportable 4.1 Eosinophils % Not Reportable 0.0 Basophils % Not Reportable 0.1 Absolute Neutrophils Not Reportable 8.8 H Absolute Lymphocytes Not Reportable 0.5 Absolute Monocytes Not Reportable 0.4 Absolute Eosinophils Not Reportable 0.0 Absolute Basophils Not Reportable 0.0 Sodium 139.9 Potassium 4.6 Chloride 104 Carbon Dioxide 25 Anion Gap 11 BUN 14 Creatinine 0.82 Est GFR ( Amer) > 60 Est GFR (Non-Af Amer) > 60 Glucose 146 H Calcium 8.9 Magnesium 2.2 Total Bilirubin 0.4 AST 19 ALT 42 Alkaline Phosphatase 61 Total Protein 5.4 L Albumin 3.1 L Impressions: Chest X-Ray 09/09/17 22:28 IMPRESSION: No acute findings. 2010 [employer]- All Rights Reserved Head CT 09/09/17 22:28 IMPRESSION: No acute findings. Mild white matter microangiopathy. Chest/Abdomen CTA 09/09/17 23:01 IMPRESSION: No acute cardiopulmonary findings. No evidence of pulmonary emboli. Assessment & Plan - Diagnosis (1) Anemia Qualifiers: Other causes of anemia: acute posthemorrhagic Is this a current diagnosis for this admission?: Yes Plan: Improved after transfusion of 1 packed red blood cell. Concern about large movement of black tarry stool which can be compounded by old blood versus iron are both. Will order a random CBC and will keep trending (2) Upper GI bleed Is this a current diagnosis for this admission?: Yes Plan: Multifactorial. Patient is on aspirin and Plavix. Medications are on hold for now. Continue Protonix boluses and transition to oral PPI. Keep trending CBC (3) Coronary artery disease Qualifiers: Coronary Disease-Associated Artery/Lesion type: unspecified vessel or lesion type [place] vs. transplanted heart: unspecified whether [place] or transplanted heart Associated angina: without angina Qualified Code(s): I25.10 - Atherosclerotic heart disease of [place] coronary artery without angina pectoris Is this a current diagnosis for this admission?: Yes Plan: Patient will require to be of Plavix and aspirin likely for the next 6 weeks. 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 Since having bilateral leg edema to order BNP. Echocardiogram order on 09/12 (4) Gout Qualifiers: Gout site: foot Gout etiology: unspecified cause Chronicity: acute Laterality: left Qualified Code(s): M10.9 - Gout, unspecified Is this a current diagnosis for this admission?: Yes Plan: Pain management avoiding nonsteroidals in the setting of peptic ulcer disease. Continue Solu-Medrol IV which hopefully made not interfere with healing status. Still having significant amount of swelling and will not cut drastically steroids in order to avoid rebound pain (5) Syncope Qualifiers: Syncope type: unspecified Qualified Code(s): R55 - Syncope and collapse Is this a current diagnosis for this admission?: Yes Plan: Due to orthostasis secondary to acute GI bleeding (6) Snoring Is this a current diagnosis for this admission?: Yes Plan: Echocardiogram to evaluate for pulmonary hypertension since there is mild also bilateral leg swelling - Time Time Spent with patient: 15-24 minutes Medications reviewed and adjusted accordingly: Yes Anticipated discharge: Home Within: within 48 hours - Inpatient Certification Based on my medical assessment, after consideration of the patient's comorbidities, presenting symptoms, or acuity I expect that the services needed warrant INPATIENT care.: Yes I certify that my determination is in accordance with my understanding of Medicare's requirements for reasonable and necessary INPATIENT services [42 CFR 412.3e].: Yes Medical Necessity: Need Close Monitoring Due to Risk of Patient Decompensation
[2017-09-13 15:33] LABS: HEMATOCRIT 27.9 % (37.9-51.0); HEMOGLOBIN 9.9 g/dL (13.5-17.0); HGB HCT DIFFERENCE 1.8; MEAN CORPUSCULAR HEMOGLOBIN 32.9 pg (27.0-33.4); MEAN CORPUSCULAR HGB CONC 35.3 g/dL (32.0-36.0); MEAN CORPUSCULAR VOLUME 93 fl (80-97); RED CELL DISTRIBUTION WIDTH 13.4 % (11.5-14.0); WHITE BLOOD COUNT 13.6 10^3/uL (4.0-10.5)
[2017-09-13 15:52] LABS: BAND NEUTROPHILS % (MANUAL) 5 % (3-5); BASOPHILS % (MANUAL) 0 % (0-2); EOSINOPHILS % (MANUAL) 0 % (0-6); LYMPHOCYTES % (MANUAL) 2 % (13-45); TOTAL CELLS COUNTED 100
[2017-09-13 15:53] LABS: RBC MORPHOLOGY COMMENT NORMO-CYTIC/CHROMIC
[2017-09-13] MEDS: LANSOPRAZOLE 30 MG TAB.RAP.DR PO SCH (17:23)
[2017-09-14 05:22] LABS: ABSOLUTE MONOCYTES (AUTO) 0.8 10^3/uL (0.1-1.4); ABSOLUTE NEUT (AUTO) 13.6 10^3/uL (1.7-8.2); BASOPHILS % (AUTO) 0.2 % (0-2); HEMATOCRIT 27.4 % (37.9-51.0); HEMOGLOBIN 9.4 g/dL (13.5-17.0); HGB HCT DIFFERENCE 0.8; LYMPHOCYTES % (AUTO) 6.6 % (13-45); MEAN CORPUSCULAR HEMOGLOBIN 32.4 pg (27.0-33.4); MEAN CORPUSCULAR HGB CONC 34.1 g/dL (32.0-36.0); MEAN CORPUSCULAR VOLUME 95 fl (80-97); MONOCYTES % (AUTO) 5.2 % (3-13); RED BLOOD COUNT 2.89 10^6/uL (4.35-5.55); RED CELL DISTRIBUTION WIDTH 13.4 % (11.5-14.0); WHITE BLOOD COUNT 15.5 10^3/uL (4.0-10.5)
[2017-09-14 05:40] LABS: ALANINE AMINOTRANSFERASE 64 U/L (21-72); ALBUMIN 3.1 g/dL (3.5-5.0); ALKALINE PHOSPHATASE 62 U/L (38-126); ANION GAP 11 (5-19); ASPARTATE AMINO TRANSFERASE 34 U/L (17-59); BILIRUBIN,DIRECT 0.3 mg/dL (0.0-0.4); BILIRUBIN,TOTAL 0.4 mg/dL (0.2-1.3); BLOOD UREA NITROGEN 18 mg/dL (7-20); CALCIUM 8.5 mg/dL (8.4-10.2); CARBON DIOXIDE 25 mmol/L (22-30); CHLORIDE 106 mmol/L (98-107); CREATININE RESULT 0.82 mg/dL (0.52-1.25); GLUCOSE 123 mg/dL (75-110); MAGNESIUM 2.3 mg/dL (1.6-2.3); POTASSIUM 4.6 mmol/L (3.6-5.0); SODIUM 141.5 mmol/L (137-145); TOTAL PROTEIN 5.3 g/dL (6.3-8.2)
[2017-09-14] MEDS: LANSOPRAZOLE 30 MG TAB.RAP.DR PO SCH (06:13)
[2017-09-14] MEDS ORDERED: ACETAMINOPHEN 325 MG TABLET PO PRN (08:00)
[2017-09-14] MEDS ORDERED: IPRATROPIUM/ALBUTEROL 0.5-2.5 MG/3 ML AMPUL NEB PRN (08:00)
[2017-09-14] MEDS: FERROUS SULFATE 325 MG TABLET PO SCH (09:58)
[2017-09-14] MEDS: POLYETHYLENE GLYCOL 3350 POWDER 17 GM/1 PACKET PO SCH (09:58)
[2017-09-14] MEDS ORDERED: METHYLPREDNISOLONE INJ 40 MG/1 ML SDV IV SCH (10:00)
[2017-09-14] MEDS ORDERED: ALLOPURINOL 300 MG TABLET PO SCH (10:00)
[2017-09-14 13:26] VITALS: BP 143/75
--- NOTE | 2017-09-14 15:33 | XCELERA REPORT ---
[address] [address] Transthoracic Echocardiogram Report Name: MARLA DALE Age: 57 yrs Gender: Male : 1960 Patient Status: Inpatient Patient Location: [address] [place] [address] Study Date: 09/14/2017 11:22 AM Height: 72 in Weight: 285 lb BSA: 2.5 m2 Procedure: A two-dimensional transthoracic echocardiogram with color flow and Doppler was performed. The study was technically limited with all images being suboptimal in quality. Reason For Study: bilaterl leg swelling (EDEMA). History: bilaterl leg swelling (EDEMA). Ordering Physician: ARTEMIO DUBON Performed By: Bertha Yeh Interpretation Summary The left ventricle is normal in size. There is normal left ventricular wall thickness. LV EF is 70% Left ventricular systolic function is normal. Doppler measurements suggest normal left ventricular diastolic function The left ventricular wall motion is normal. There is no thrombus. There is no ventricular septal defect visualized. The right ventricle is grossly normal size. The right ventricle is not well visualized secondary to technical limitations The right atrium is normal. The left atrium is moderately dilated. The interatrial septum is intact with no evidence for an atrial septal defect. There is no evidence of mitral valve prolapse. There is no vegetation seen on the mitral valve. There is no mitral valve stenosis. There is a trace amount of mitral regurgitation There is no aortic valvular vegetation. There is no aortic valve stenosis There is no LVOT obstruction. No aortic regurgitation is present. There is no tricuspid stenosis. There is a trace to mild amount of tricuspid regurgitation There is mild pulmonary hypertension by echo RVSP is 37 to 42 mm of Hg , with RA mean of 5 to 10. There is no pulmonic valvular regurgitation. The aortic root is normal size. The inferior vena cava appeared normal and decreased > 50% with respiration (RAP 5-10 mmHg) There is no pericardial effusion. MMode/2D Measurements & Calculations RVDd: 4.1 cm LVIDd: 5.5 cm FS: 43.6 % Ao root diam: 3.5 cm IVSd: 0.88 cm LVIDs: 3.1 cm EDV(Teich): 146.7 ml LVPWd: 0.87 cm ESV(Teich): 37.8 ml Ao root area: 9.8 cm2 EF(Teich): 74.2 % Doppler Measurements & Calculations MV E max fili: MV dec slope: Ao V2 max: LV V1 max P.5 cm/sec 144.9 cm/sec 5.0 mmHg MV A max fili: 650.9 cm/sec2 Ao max PG: LV V1 max: 74.9 cm/sec MV dec time: 8.4 mmHg 112.0 cm/sec MV E/A: 1.5 0.17 sec PA V2 max: TR max fili: 105.8 cm/sec 270.6 cm/sec PA max P.5 mmHgTR max P.4 mmHg Left Ventricle The left ventricle is normal in size. There is normal left ventricular wall thickness. LV EF is 70%. Left ventricular systolic function is normal. Doppler measurements suggest normal left ventricular diastolic function. The left ventricular wall motion is normal. There is no thrombus. There is no ventricular septal defect visualized. Right Ventricle The right ventricle is grossly normal size. The right ventricle is not well visualized secondary to technical limitations. Atria The right atrium is normal. The left atrium is moderately dilated. The interatrial septum is intact with no evidence for an atrial septal defect. Mitral Valve There is no evidence of mitral valve prolapse. There is no vegetation seen on the mitral valve. There is no mitral valve stenosis. There is a trace amount of mitral regurgitation. Aortic Valve There is no aortic valvular vegetation. There is no aortic valve stenosis. There is no LVOT obstruction. No aortic regurgitation is present. Tricuspid Valve There is no tricuspid stenosis. There is a trace to mild amount of tricuspid regurgitation. There is mild pulmonary hypertension by echo. RVSP is 37 to 42 mm of Hg , with RA mean of 5 to 10. Pulmonic Valve There is no pulmonic valvular stenosis. There is no pulmonic valvular regurgitation. Great Vessels The aortic root is normal size. The inferior vena cava appeared normal and decreased > 50% with respiration (RAP 5-10 mmHg). Effusions There is no pericardial effusion. : ARTEMIO DUBON > Catalina Hoyt
[2017-09-14] MEDS ORDERED: LANSOPRAZOLE 30 MG TAB.RAP.DR PO SCH (17:00)
--- NOTE | 2017-09-14 17:04 | PDOC DISCHARGE SUMMARY ---
General - Admit/Disc Date/PCP Admission Date/Primary Care Provider: 09/10/17 03:29 Discharge Date: 09/14/17 - Discharge Diagnosis (1) Gastric ulcer Is this a current diagnosis for this admission?: Yes (2) Upper GI bleed Is this a current diagnosis for this admission?: Yes (3) Anemia Is this a current diagnosis for this admission?: Yes (4) Coronary artery disease Is this a current diagnosis for this admission?: Yes (5) Gout Is this a current diagnosis for this admission?: Yes (6) Syncope Is this a current diagnosis for this admission?: Yes (7) Snoring Is this a current diagnosis for this admission?: Yes (8) Duodenitis Is this a current diagnosis for this admission?: Yes (9) Esophagitis Is this a current diagnosis for this admission?: Yes - Additional Information Resuscitation Status: Full Code Discharge Diet: Cardiac Discharge Activity: Activity As Tolerated Home Medications: Amlodipine Besylate 5 mg PO DAILY 09/10/17 Atorvastatin Calcium [Lipitor 20 mg Tablet] 20 mg PO QHS 09/10/17 Docusate Sodium [Colace 100 mg Capsule] 100 mg PO QHS 09/10/17 Metoprolol Tartrate 12.5 mg PO Q12 09/10/17 Valsartan/Hydrochlorothiazide [Valsartan-Hctz 160-25 mg Tab] 1 each PO DAILY 04/20 Allopurinol [Zyloprim 300 mg Tablet] 300 mg PO DAILY #30 tablet 09/14/17 Ferrous Sulfate [Feosol 325 mg Tablet] 325 mg PO BIDPCBS #60 tablet 09/14/17 Oxycodone HCl/Acetaminophen [Percocet 7.5-325 mg Tablet] 1 each PO Q4HP PRN #30 tablet 09/14/17 Pantoprazole Sodium [Protonix] 40 mg PO BID #90 tablet. 09/14/17 History of Present Illness History of Present Illness: MARLA DALE is a 57 year old male with a past medical history of coronary artery disease with stent placement 2013, osteoarthritis and gout on indomethacin presented with diaphoresis following a meal. Afterwards had a brief syncopal episode in which he was helped to the ground by his . He did not have limb shaking or sustained injury but had urinary incontinence. In the emergency room he was found to have orthostasis, an elevated BUN followed by a large bright red blood bowel movement. He was started on IV Protonix and referred to the hospitalist for admission. Hospital Course Hospital Course: Patient was initially admitted to intensive care unit. He was evaluated by Dr. Chao who performed EGD on 09/10. Findings of EGD were consistent with esophagitis, clear base gastric ulcer and duodenitis. Culprit related to gastric ulcer which likely related to the use of Plavix, aspirin and indomethacin. Patient remained on Protonix IV for 48 hours and then transition to oral. Since hemoglobins were trended and it was observed a downward trend, patient was administered 1 packed red blood cell since less than 8 and he is cardiac patient. We continued monitoring hemoglobin and remained stable for 24 hours. At the time of discharge hemoglobin was 9.4. Patient was discharged on ferrous sulfate which he has been advised to take it for the following 3 months. Recommend primary care provider to follow-up in this regard. Patient takes Plavix and aspirin and these medications had been held for the next 6 weeks. He has been advised as to follow-up with smash piecer because he had a heart attack 3 years ago for recommendation regarding resuming these medications. Patient has been advised as to avoid nonsteroidals. He is to follow-up with Dr. Chao as he may need a follow-up EGD. While hospitalized patient had a flare of gout which responded to IV steroid. He was also placed on allopurinol 300 mg 1 p.o. at bedtime. He has been given a short supply of Percocet for pain relief. He suffers from snoring and he has been advised as to follow-up with his primary care provider as he may need a sleep study. Also we observe some mild generalized swelling and we ordered an echocardiogram. At the time of discharge the result still pending however since he had improved remarkably this could be safely followed-up by his smash piecer. Since patient had improved and was requesting to be discharged and was doing well prompted to discharge Physical Exam Vital Signs: Temp Pulse Resp BP Pulse Ox 98.1 F 62 18 143/75 H 98 09/14/17 13:24 09/14/17 13:24 09/14/17 13:24 09/14/17 13:24 09/14/17 13:24 Intake & Output 09/13/17 09/14/17 09/15/17 06:59 06:59 06:59 Intake Total 4380 2215 Output Total 5807 7669 Balance -1420 -1710 Weight 121.3 kg 120.6 kg General appearance: PRESENT: no acute distress, cooperative, obese Head exam: PRESENT: atraumatic, normocephalic Eye exam: PRESENT: EOMI, PERRLA Ear exam: PRESENT: normal external ear exam, TM's normal bilaterally Mouth exam: PRESENT: moist Neck exam: PRESENT: full ROM. ABSENT: JVD, tenderness Respiratory exam: PRESENT: clear to auscultation carlos Cardiovascular exam: PRESENT: RRR. ABSENT: diastolic murmur, systolic murmur Vascular exam: PRESENT: normal capillary refill GI/Abdominal exam: PRESENT: normal bowel sounds, soft. ABSENT: ascites, tenderness Extremities exam: PRESENT: joint swelling - Left foot Musculoskeletal exam: PRESENT: full ROM Neurological exam: PRESENT: alert, awake, oriented to person, oriented to place , oriented to time Psychiatric exam: PRESENT: appropriate affect, normal mood Results Laboratory Results: 09/14/17 04:33 09/14/17 04:33 09/14/17 09/14/17 04:33 04:33 WBC 15.5 H RBC 2.89 L Hgb 9.4 L Hct 27.4 L MCV 95 MCH 32.4 MCHC 34.1 RDW 13.4 Plt Count 259 Seg Neutrophils % 88.0 H Lymphocytes % 6.6 L Monocytes % 5.2 Eosinophils % 0.0 Basophils % 0.2 Absolute Neutrophils 13.6 H Absolute Lymphocytes 1.0 Absolute Monocytes 0.8 Absolute Eosinophils 0.0 Absolute Basophils 0.0 Sodium 141.5 Potassium 4.6 Chloride 106 Carbon Dioxide 25 Anion Gap 11 BUN 18 Creatinine 0.82 Est GFR ( Amer) > 60 Est GFR (Non-Af Amer) > 60 Glucose 123 H Calcium 8.5 Magnesium 2.3 Total Bilirubin 0.4 AST 34 ALT 64 Alkaline Phosphatase 62 Total Protein 5.3 L Albumin 3.1 L 09/13/17 04:19 NT-Pro-B Natriuret Pep 331 Impressions: Chest X-Ray 09/09/17 22:28 IMPRESSION: No acute findings. 2011 [employer]- All Rights Reserved Head CT 09/09/17 22:28 IMPRESSION: No acute findings. Mild white matter microangiopathy. Chest/Abdomen CTA 12/06/17 23:01 IMPRESSION: No acute cardiopulmonary findings. No evidence of pulmonary emboli. Plan Discharge Plan: Discharge home Time Spent: Less than 30 Minutes
== END 2017-09-14 13:44 | disposition home or self-care (01) | DRG 378 ==
LOC: ER 22:02 → EH 09-10 03:29 → UNDOADMIN 09-10 04:04 → EH 09-10 04:04 → ICU 09-10 05:17 → 3N 09-10 17:35
PROVIDERS: ADMIT Internal Medicine; ATTEND Internal Medicine
PROC: 0DD68ZX Extraction of Stomach, Via Natural or Artificial Opening Endoscopic, Diagnostic (ICD-10-PCS; 2017-09-10)
PROC: 30233N1 Transfusion of Nonautologous Red Blood Cells into Peripheral Vein, Percutaneous Approach (ICD-10-PCS; 2017-09-12)
PROC: 3E0234Z Introduction of Serum, Toxoid and Vaccine into Muscle, Percutaneous Approach (ICD-10-PCS; principal; 2017-09-14)
DX: K92.2 Gastrointestinal hemorrhage, unspecified (principal); D62 Acute posthemorrhagic anemia; R55 Syncope and collapse; K20.9 Esophagitis, unspecified; K25.9 Gastric ulcer, unspecified as acute or chronic, without hemorrhage or perforation; K29.80 Duodenitis without bleeding; I10 Essential (primary) hypertension; R06.83 Snoring; M79.89 Other specified soft tissue disorders; I25.10 Atherosclerotic heart disease of native coronary artery without angina pectoris; M19.90 Unspecified osteoarthritis, unspecified site; M10.9 Gout, unspecified; I25.2 Old myocardial infarction; Z95.5 Presence of coronary angioplasty implant and graft; Z23 Encounter for immunization; Z79.01 Long term (current) use of anticoagulants; Z79.82 Long term (current) use of aspirin
CPT/HCPCS: 36415; 36430; 43239; 70450; 71020; 71275; 80048; 80053; 80307; 81001; 82272; 82550; 82553; 83735; 83880; 84484; 85025; 85379; 85610; 85730; 86850; 86900; 86901; 86920; 88305; 88342; 90686; 93005; 93010; 93306; 96361; 96374; 99285; J0171; J1200; J1610; J1885; J1940; J2250; J2310; J2405; J2920; J3010; J3490; J7030; J7040; P9016; S0164

== ENCOUNTER → 2017-09-24 | Outpatient (CLI) | payer BC ==
--- NOTE | 2017-09-24 15:27 | RADIOLOGY REPORT (SQ) ---
EXAM DESCRIPTION: ANKLE LEFT COMPLETE COMPLETED DATE/TIME: 09/24/2017 3:11 pm REASON FOR STUDY: PAIN IN LEFT ANKLE AND JOINTS OF LEFT FOOT M25.572 PAIN IN LEFT ANKLE AND JOINTS OF LEFT FOOT COMPARISON: None. NUMBER OF VIEWS: Three views. TECHNIQUE: AP, lateral, and oblique radiographic images acquired of the left ankle. LIMITATIONS: None. FINDINGS: MINERALIZATION: Normal. BONES: Tiny avulsion fragments are seen off the distal tip of the medial malleolus. JOINTS: No disruption of the ankle mortise. Question ankle joint effusion. There is mild joint spac e narrowing and bony spurring at the tibiotalar and fibulotalar joints. SOFT TISSUES: Ossification of the plantar fascia with calcaneal spur. Medial and lateral soft tissue swelling at the ankle. OTHER: No other significant finding. IMPRESSION: Medial and lateral soft tissue swelling, tiny joint effusion. Small avulsion fragments off the distal tip medial malleolus. No disruption of the ankle mortise. TECHNICAL DOCUMENTATION: JOB ID: [id number] [employer]- All Rights Reserved
== END ==
LOC: OD 15:02
PROVIDERS: ATTEND Physician Assistant
DX: M25.572 Pain in left ankle and joints of left foot (principal); M79.89 Other specified soft tissue disorders

== ENCOUNTER 2017-10-26 07:31 | Day surgery (SDC) | payer BC ==
[~2017-10-26 07:31] MED LIST: PROPOFOL INJ 200 MG/20 ML VIAL IV ONE
[2017-10-26] MEDS ORDERED: PROPOFOL INJ 200 MG/20 ML VIAL IV ONE (09:07)
[2017-10-26 09:21] VITALS: BP 144/88
--- NOTE | 2017-10-26 12:46 | Operative Report ---
Operative Report DATE OF SURGERY: 10/26/17 Operative Report: The risks, benefits and alternatives of the procedure including risks of bleeding, perforation requiring surgery are explained to the patient in detail and informed consent is obtained. Patient is taken back to the endoscopy suite and placed in a left, lateral decubital position. Timeout was called. Propofol medications administered. A rectal examination is done which did not reveal any masses, tears or fissures. An Olympus videoscope was inserted into the patient's rectum. The scope was then carefully advanced all the way to the cecum. The cecum was identified by the usual anatomical landmarks including the ileocecal valve as well as appendiceal office. Photodocumentation is obtained. Prep is good. The scope was then sequentially pulled back via the various segments of the colon including the ascending colon, hepatic flexure, transverse colon, splenic flexure, descending colon and finally into the rectosigmoid portions of the colon. Retroflexion maneuvers performed. The risks benefits and alternatives of the procedure explained to the patient in detail and informed consent is obtained.A GIF Olympus video scope was inserted into the patient's mouth and hypopharynx, the esophagus is identified intubated and insufflated, the scope was then advanced through the esophagus stomach and duodenum, retroflexion maneuver is done, the esophagus stomach and first and second portions of the duodenum examined PREOPERATIVE DIAGNOSIS: Colorectal cancer screening. Follow-up gastric ulcers while patient was previously admitted in the ICU POSTOPERATIVE DIAGNOSIS: 2 gastric AVMs that ablated in situ. Healed gastric ulcers. 3 colon polyp status post removal with snare polypectomy. Internal hemorrhoids OPERATION: Colonoscopy with snare polypectomy. EGD with ablation SURGEON: BETO BENÍTEZ ANESTHESIA: LMAC TISSUE REMOVED OR ALTERED: As noted above. COMPLICATIONS: None. ESTIMATED BLOOD LOSS: None. INTRAOPERATIVE FINDINGS: As noted above. PROCEDURE: Patient tolerated procedure well. No immediate postprocedure complications are noted. Patient discharged in good condition. Discharge date 10/26/2017. Discharge diet: Regular. Discharge activity: Regular. 2-3 week follow-up to discuss findings. Patient is instructed to call the office or proceed to the emergency room should there be any further problems or questions. 3-5 year surveillance colonoscopy. We will await pathology. Patient is instructed to call the office or proceed to the emergency room should there be any further problems or questions.
== END 2017-10-26 09:20 | disposition home or self-care (01) ==
LOC: END 07:31
PROVIDERS: ATTEND Internal Medicine Gastroenterology
PROC: 0DBH8ZX Excision of Cecum, Via Natural or Artificial Opening Endoscopic, Diagnostic (ICD-10-PCS; principal; 2017-10-26 08:00)
PROC: 0DBP8ZX Excision of Rectum, Via Natural or Artificial Opening Endoscopic, Diagnostic (ICD-10-PCS; 2017-10-26 08:00)
DX: Z12.11 Encounter for screening for malignant neoplasm of colon (principal); K64.8 Other hemorrhoids; D12.8 Benign neoplasm of rectum; D12.0 Benign neoplasm of cecum; Z87.11 Personal history of peptic ulcer disease
CPT/HCPCS: 43270; 45385; 88305 ×2; J2704; 813